=== PATIENT | female | born 1945 | race Caucasian/White ===

== ENCOUNTER 2022-10-05 08:53 | Outpatient (CLI) | payer MEDICARE, OTHER, SELFPAY ==
--- NOTE | 2022-10-05 09:15 | MR_ITS ---
[address] [address] Phone:?[phone] Fax:?[phone] Referring Physician Information: Dixon Camargo M.D. [id number] [facility] [address] Phone:?[phone] Fax:?[phone] Patient:Meagan Gleason D.O.B:?1945 Sex:?Female Phone:?[phone] [facility] MRN:?[id number] Exam Date:?10/05/2022 ? EXAM: MRI of the LEFT KNEE, without contrast CLINICAL HISTORY: Left knee pain. Evaluate for lateral meniscal tear. COMPARISONS: Plain radiographs 09/28/2022. TECHNICAL: MR sequences of the left knee: sagittals: PD, PDFS coronals: PD, T2FS axials: PD, PDFS CONTRAST: None SEDATION: None FINDINGS: Bones: No fracture or destructive osseous lesion. 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 No degenerative subchondral cystic change/degenerative subchondral edema-like signal. Retinacula: The medial and lateral retinacula are intact. Fat pads: The infrapatellar, quadriceps, and prefemoral fat pads are unremarkable. Knee joint: Effusion: Large left knee joint effusion. Popliteal cyst: None. Intra-articular bodies: None. Posteromedial corner: Mild semimembranosus-medial collateral ligament bursitis. The pes anserine tendons are intact. Medial compartment: Medial meniscus: Partial-thickness radial tear of the posterior horn of the medial meniscus best seen on sagittal images 11 and 12, coronal image 20, and axial image 22. 3 mm of medial meniscal extrusion best seen on coronal series 8 image 18. Cartilage: Diffuse grade II chondromalacia over most of the weightbearing portion of the medial femoral condyle. Lateral compartment: Lateral meniscus: Intact. Cartilage: Intact. Ligaments: Anterior cruciate ligament: Intact. Posterior cruciate ligament: Intact. Medial collateral ligament: Intact. Posterior oblique ligament: Intact. Fibular collateral ligament: Intact. Posterolateral corner: The distal biceps femoris tendon, iliotibial band, popliteus tendon, popliteus muscle, popliteofibular ligament, and arcuate ligament are intact. Extensor mechanism: Patellar tendon: Intact. Quadriceps tendon: Intact. There is a third head of the gastrocnemius muscle. IMPRESSION: 1. Partial thickness radial tear of the posterior horn of the medial meniscus. 3 mm of medial meniscal extrusion. 2. 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 3. 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 4. Mild semimembranosus-medial collateral ligament bursitis. 5. Large left knee joint effusion. 6. Third head of the gastrocnemius muscle, an anatomic variant accessory muscle. 7. No lateral meniscal tear or ligamentous injury of the left knee. RCB Electronically signed on 10/05/2022 10:45:00 AM by Surinder Burch M.D.
== END 2022-10-05 08:54 | disposition home or self-care (01) ==
LOC: MRI 08:55
PROVIDERS: PCP Family Medicine; Visit Provider Orthopaedic Surgery
DX: M25.562 Pain in left knee (principal); M23.222 Derangement of posterior horn of medial meniscus due to old tear or injury, left knee; M22.42 Chondromalacia patellae, left knee; M25.462 Effusion, left knee
CPT/HCPCS: 73721

== ENCOUNTER 2023-01-14 09:30 | Day surgery (SDC) | payer MEDICARE, OTHER, SELFPAY ==
[2023-01-14] VITALS (12 sets, daily range): BP systolic 98–175; BP diastolic 59–86; PULSE 60–73; RESP 15–17; TEMP 36.2–36.6; O2SAT 93–97; BMI 30.4
--- OUTSIDE RECORDS SUMMARY | 2023-01-14 09:33 | XMS_ITS | Continuity of Care Document ---
Author Name Unknown Organization [facility] Address [address] [place] [address] Phone Care Team Providers Care Vacuum Worker Name Role Phone Aaron Deras MD Unavailable Unavailable Allergies, Adverse Reactions, Alerts Substance Reaction Status Criticality Nyncglb-DMK-YhH Reductase Inhibitors Acti ve No Information Medications Medication Instructions Dosage Effective Dates (start - stop) Status Comments nifedipine ER 90 mg 24 hr Tab take 1 tablet (90MG) by oral route every day 90 MG - Active glipizide 10 mg Tab take 1 tablet (10MG) by oral route every day before a meal 10 MG - Active metformin 500 mg Tab take 1 tablet (500M G) by oral route 2 times every day with morning and evening meals 500 MG - Active aspirin 325 mg Tab take 1 tablet (325MG ) by oral route every day as needed - Active Aleve 220 mg Tab take 1 tablet (220MG ) by oral route every 12 hours as needed 220 MG - Active Procedures Procedure Date Office/Outpatient Visit, New X-Ray Exam Of Pelvis 1 Or 2v Advance Directives Directive Yes / No Effective Date File Name No Information Encounters Encounter Description Practice Location Reason(s) For Visit Diagnoses Date Provider Providers Copied on Encounter [facility], [address], [place], [address], [place] tel:[phone] [facility], No Information 2 [place] Walker. [facility] [address], [place], [address], [place]. tel:[phone] Office/Outpa tient Visit, New [facility], [address], [place], [address], [place] tel:[phone] [facility], Hip Pain (chief complaint) Pain in joint involving pelvic region and thigh 2 [place] Walker. [facility] [address], [place], [address], [place]. tel:[phone] Family History Family Member Type Diagnosis Age At Onset No Information Payers Payer name Insurance type Covered libertarian ID Authoriza tion(s) [employer] [id number] Social History Type Description Quantity Date Captured Comments Sex Female Smoking Status No Information Chief Complaint And Reason For Visit No Information Reason For Referral Reason For Referral No Information Plan Of Treatment Date Type Action Status No Information History Of Present Illness Encounter Date Complaint History Of Prese nt Illness No Information Functional Status Date Functional Assessmen t No Information Instructions Date Instruction Additional Infor mation No Information Assessments Type Assessment Date No Information Patient Care Teams Name Effective Dates (start - stop) Status Members No Information
[2023-01-14] MEDS: SODIUM CHLORIDE 0.9 % (FLUSH) 10 ML SYRINGE IVF (10:00)
[2023-01-14] MEDS: LACTATED RINGERS 1000 ML 1,000 ML 100 ML IV (10:00)
--- NOTE | 2023-01-14 10:36 | W.ANESCHARGE ---
Anesthesia Charges Start Date/Time Anesthesia Start Date: 01/14/23 Anesthesia Start Time: 11:32 Stop Date/Time Anesthesia Stop Date: 01/14/23 Anesthesia Stop Time: 12:34 Summary Extremes of Age - Over 70 or under 1: MDA
[2023-01-14] MEDS: CEFAZOLIN 2 GM INJ IVP (11:37)
--- NOTE | 2023-01-14 12:21 | PM.ORPRC ---
Procedure Note Date of procedure: 01/14/23 Procedure: PREOPERATIVE DIAGNOSIS: Left knee medial meniscus tear POSTOPERATIVE DIAGNOSIS: Left knee medial meniscus tear NAME OF OPERATION: Left knee arthroscopic partial medial meniscectomy SURGEON: Dixon Camargo MD MERCHANDISING SPECIALIST: Jessica Jaramillo PA-C ANESTHESIA: Spinal ESTIMATED BLOOD LOSS: 0 mL COMPLICATIONS: None SPECIMENS: None DRAINS: None PREOPERATIVE ANTIBIOTICS: Ancef 2 gram INDICATIONS: The patient is a 77-year-old with a history of left knee medial pain. MRI scan is consistent with a medial meniscus tear. Despite appropriate nonoperative management, including activity modification, antiinflammatories, xzah-mnd-sovthmt pain medication, bracing, physical therapy, and injections they continue to have pain and disability. Operative intervention was offered. The risks, benefits and expected outcomes were discussed in detail. These included but were not limited to: Infection, bleeding, injury to blood vessel or nerve, venous thromboembolism. All questions were answered to their satisfaction. PROCEDURE: Spinal anesthesia was administered. The patient was placed supine on the operating room table. The left lower extremity was prepped and draped in the usual sterile fashion. The limb was exsanguinated with the Buck bandage. The pneumatic tourniquet was inflated to 300 mmHg. A standard anterolateral portal was established. The arthroscope was introduced. The working portal was established anteromedially. Diagnostic arthroscopy was performed with findings as follows: The suprapatellar pouch is normal. Articular surface on the patella shows diffuse grade 2 change. Articular surface on the trochlea shows diffuse grade 2 change. The medial gutter is normal. The medial compartment shows diffuse grade 3 change on the medial femoral condyle, grade 2 change on the medial tibial plateau. The medial meniscus has a complex degenerative tear of the posterior horn. This primarily consists of a radial tear from the leading edge to the midportion, not to the capsule. This results in an unstable anterior and posterior flap. There was an additional unstable flap of the far posterior horn, just off the posterior tibial attachment, flipped posteriorly. Posterior root is intact. The notch shows the ACL to be intact. The lateral compartment shows normal articular cartilage on the lateral femoral condyle and lateral tibial plateau. The lateral meniscus is normal. The lateral gutter is normal. The posterior horn of the medial meniscus was debrided to a stable base using a combination of baskets and shaver through both portals. Unstable chondral flaps on the medial femoral condyle were debrided with the shaver through both portals, taken to a stable base. Arthroscopic instruments were removed, the portal sites were Steri-Stripped closed, the knee was infiltrated with 30 mL of 0.25% Marcaine without epinephrine. A dry dressing was applied, the tourniquet was released. Sponge and needle counts were correct x 2. The patient tolerated the procedure well. There were no apparent complications. They were carefully transferred to the hospital bed and taken to the postanesthesia care unit in satisfactory condition. PLAN: The patient will be discharged to home. They may weightbear as tolerates. Range of motion will be unrestricted. They will follow up in the office next week for a wound check.
[2023-01-14] MEDS: BUPIVACAINE 0.25% 30 ML INJECTION (12:24)
--- NOTE | 2023-01-14 12:33 | W.ANESCHARGE ---
Anesthesia Charges Start Date/Time Anesthesia Start Date: 01/14/23 Anesthesia Start Time: 11:32 Stop Date/Time Anesthesia Stop Date: 01/14/23 Anesthesia Stop Time: 12:34
--- NOTE | 2023-01-14 13:13 | SUR.PHASEI ---
patient met discharge criteria per anesthesia
== END 2023-01-14 14:05 | disposition home or self-care (01) ==
PROVIDERS: PCP Family Medicine; Visit Provider Orthopaedic Surgery
PROC: (CPT 29882; principal; 2023-01-14 11:00)
DX: M23.222 Derangement of posterior horn of medial meniscus due to old tear or injury, left knee (principal)
CPT/HCPCS: 29881; 01400; 82962; 99100; J0690; J2250; J2405; J3010; J3490; J7120